=== PATIENT | male | born 1995 | race Hispanic/Latino ===

== ENCOUNTER 2017-03-25 07:34 | Emergency (ER) | payer SELFPAY ==
[2017-03-25] MEDS ORDERED: Lidocaine 1% w/Epinephrine 1:200K 30 ML VIAL ONE (08:05)
== END 2017-03-25 08:48 | disposition home or self-care (01) ==
LOC: ERS 07:34
DX: S01.81XA Laceration without foreign body of other part of head, initial encounter (principal); W25.XXXA Contact with sharp glass, initial encounter
CPT/HCPCS: 12014; 99406

== ENCOUNTER 2017-04-04 21:48 | Emergency (ER) | payer SELFPAY ==
[2017-04-04] MEDS ORDERED: Bacitracin Zinc 1 Packet ONE (22:35)
== END 2017-04-04 22:40 | disposition home or self-care (01) ==
LOC: ERS 21:48
DX: S01.81XD Laceration without foreign body of other part of head, subsequent encounter (principal); F17.210 Nicotine dependence, cigarettes, uncomplicated; W25.XXXD Contact with sharp glass, subsequent encounter

== ENCOUNTER 2019-08-01 11:04 | Emergency (ER) | payer SELFPAY ==
--- NOTE | 2019-08-01 11:47 | RAD ---
LEFT FINGER 3 VIEWS: HISTORY: Injury. Laceration. COMPARISON: None. FINDINGS: Soft tissue laceration of the distal phalanx tip of the thumb. No fracture. No malalignment. No ra diopaque foreign object. IMPRESSION: Tip of the finger soft tissue laceration without fracture or malalignment. POS: C
[2019-08-01] MEDS ORDERED: Lidocaine 1% (PF) 30 ML VIAL ONE (11:57)
[2019-08-01] MEDS ORDERED: Bupivacaine 0.5% 10 ML VIAL ONE (12:03)
[2019-08-01] MEDS ORDERED: Bacitracin 1 PK ONE (13:22)
== END 2019-08-01 13:45 | disposition home or self-care (01) ==
LOC: ERS 11:04
DX: S61.112A Laceration without foreign body of left thumb with damage to nail, initial encounter (principal); F17.210 Nicotine dependence, cigarettes, uncomplicated; W26.0XXA Contact with knife, initial encounter
CPT/HCPCS: 64450; J2001; J3490